=== PATIENT | female | born 1975 | race Two or more races ===

== ENCOUNTER 2017-04-18 17:34 | Emergency (ER) | payer SELFPAY ==
[~2017-04-18] VITALS: Ht 162.6 cm; Wt 49.9 kg
--- NOTE | 2017-04-18 17:47 | NUR ---
PT BENJI TO ER BED 14. WAS AT A PARKING LOT ACTING [place]IZZ[place]. PT'S FRIEND STATES "SHE GOT A BAD DRUG." PLACED ON MONITOR. TACHY OTHERWISE STYABLE VITALS. AWAITING MD MCKINNEY.
--- NOTE | 2017-04-18 17:50 | NUR ---
DR QUEEN AT BEDSIDE FOR EVAL.
[2017-04-18] MEDS ORDERED: IV NS 0.9% 1,000 ML BAG IV ONE (18:00)
[2017-04-18] MEDS ORDERED: OLANZAPINE 10 MG VIAL IM ONE ×2 (18:00→18:04)
--- NOTE | 2017-04-18 18:01 | NUR ---
IV LINE STARTED BLOOD DRAWN AND SENT TO LAB.
[2017-04-18 18:05] LABS: EOSINOPHILS # (AUTO) 0.1 /CMM (0.0-0.7); HEMOGLOBIN 11.4 g/dL (11.5-14.8); NEUTROPHILS # (AUTO) 7.4 /CMM (1.8-8.9); NEUTROPHILS % (AUTO) 69.4 % (43.0-81.0); WHITE BLOOD COUNT (AUTO) 10.6 K/uL (4.3-11.0)
[2017-04-18 18:13] LABS: BASOPHILS # (AUTO) 0.3 /CMM (0.0-0.2); BASOPHILS % (AUTO) 2.5 % (0.0-2.0); EOSINOPHILS % (AUTO) 1.4 % (0.0-6.0); HEMATOCRIT 33 % (33-45); LYMPHOCYTES % (AUTO) 19.4 % (20.0-44.0); MEAN CORPUSCULAR HEMOGLOBIN 30 PG (26.0-33.0); MEAN CORPUSCULAR HGB CONC 35 g/dl (31.0-36.0); MEAN CORPUSCULAR VOLUME 85 fL (82-100); MONOCYTES # (AUTO) 0.8 /CMM (0.1-1.30); MONOCYTES % (AUTO) 7.3 % (2.0-12.0); PLATELET COUNT (AUTO) 298 /CMM (150-450); RDW COEFFICIENT OF VARIATION 13.9 (11.5-15.0); RED BLOOD CELL COUNT(AUTO) 3.84 MIL/uL (4.0-5.2)
[2017-04-18 18:15] LABS: CARBON DIOXIDE 26 mmol/L (21-32); CHLORIDE 102 mmol/L (98-107); CREATININE 0.9 mg/dL (0.6-1.3); GLUCOSE 95 mg/dL (74-106); POTASSIUM 3.2 mmol/L (3.5-5.1); SODIUM SERUM 138 mmol/L (136-145); UREA NITROGEN, BLOOD 16 mg/dL (7-18)
[2017-04-18 18:29] LABS: ACETAMINOPHEN 0 ug/ml (10-30); ALANINE AMINOTRANSFERASE 72 U/L (12-78); ALBUMIN 3.6 g/dL (3.4-5.0); ALCOHOL, BLOOD < 3 mg/dL (0-0); ALKALINE PHOSPHATASE 71 U/L (46-116); ASPARTATE AMINOTRANSFERASE 96 U/L (15-37); BILIRUBIN,DIRECT 0.2 mg/dL (0.0-0.2); BILIRUBIN,TOTAL 0.7 mg/dL (0.2-1.0); SALICYLATE 3.3 mg/dL (2.8-20.0); TOTAL PROTEIN, SERUM 6.9 g/dL (6.4-8.2)
[2017-04-18] MEDS ORDERED: LORAZEPAM INJ 2 MG/ML VIAL ONE (19:27)
[2017-04-18] MEDS ORDERED: LORAZEPAM INJ 2 MG/ML VIAL IV ONE (19:30)
[2017-04-18] MEDS ORDERED: ZIPRASIDONE MESYLATE 20 MG/VIAL VIAL IM ONE (19:34)
--- NOTE | 2017-04-18 19:38 | NUR ---
PT STILL AGITATED. GEODON 10MG IM GIVEN PER ER MD VERBAL ORDER.
[2017-04-19] MEDS ORDERED: ONDANSETRON 4 MG TAB.RAPDIS SL ONE (02:00)
--- NOTE | 2017-04-19 05:50 | NUR ---
PT OK TO DISCHARGE PER DR ROSALES. IV removed. Catheter intact and site benign. Pressure and 4x4 applied to site. No bleeding noted.Patient discharged to home in stable condition. Written and verbal after care instructions given. Patient verbalizes understanding of instruction.Patient is awake and alert to self, day, and place. PT ambulatory with a steady gait
[2017-04-19 07:08] VITALS: BP 124/71
== END 2017-04-19 07:09 | disposition home or self-care (01) ==
LOC: ER 17:36
DX: R46.89 Other symptoms and signs involving appearance and behavior (principal); T50.905A Adverse effect of unspecified drugs, medicaments and biological substances, initial encounter; Y92.481 Parking lot as the place of occurrence of the external cause
CPT/HCPCS: 36415; 80048; 80076; 80329; 85025; 96372; 96374; 99284; A4606; G0480 ×2; J2060; J3486; J3490; J7030; Z7610